=== PATIENT | female | born 1995 | race Caucasian/White ===

== ENCOUNTER 2016-12-01 16:36 | Emergency (ER) | payer MEDICAID | END 2016-12-01 17:12 | disposition left against medical advice (07) | LOC: ER 16:36 | DX: Z53.21 Procedure and treatment not carried out due to patient leaving prior to being seen by health care provider (principal) ==

== ENCOUNTER 2017-08-30 12:06 | Emergency (ER) | payer MEDICAID ==
--- NOTE | 2017-08-30 13:07 | ER Document Report ---
ED Medical Screen (RME) - General Chief Complaint: Vag Bleeding, +preg <12wks Stated Complaint: VAGINAL BLEEDING Time Seen by Provider: 08/30/17 13:01 Mode of Arrival: Ambulatory Information source: Patient TRAVEL OUTSIDE OF THE [place] IN LAST 30 DAYS: No - HPI Patient complains to provider of: vaginal bleeding, Onset: Yesterday Notes: 08/30/17 13:06 Patient is a 22-year-old female who is with 3 recent positive home tests, presenting to the emergency room today complaining of vaginal spotting, last menstrual period was July 25 which would put her around 5 weeks - Related Data Allergies/Adverse Reactions: codeine [Codeine] Allergy (Verified 08/30/17 12:45) aspirin Adverse Reaction (Verified 08/30/17 12:45) Past Medical History - Social History Family history: None Renal/ Medical History: Denies: Hx Peritoneal Dialysis Psychiatric Medical History: Reports: Hx Bipolar Disorder - Immunizations Immunizations up to date: Yes Hx Diphtheria, Pertussis, Tetanus Vaccination: Yes Physical Exam - Vital signs Vitals: Temp Pulse Resp BP Pulse Ox 98.5 F 116 H 18 112/69 98 08/30/17 12:42 08/30/17 12:42 08/30/17 12:42 08/30/17 12:42 08/30/17 12:42 Course - Vital Signs Vital signs: Temp Pulse Resp BP Pulse Ox 98.5 F 116 H 18 112/69 98 08/30/17 12:42 08/30/17 12:42 08/30/17 12:42 08/30/17 12:42 08/30/17 12:42
[2017-08-30 13:46] LABS: ABSOLUTE EOSINOPHILS # (AUTO) 0.3 10^3/uL (0.0-0.6); ABSOLUTE LYMPHOCYTES (AUTO) 2.1 10^3/uL (0.5-4.7); ABSOLUTE MONOCYTES (AUTO) 0.6 10^3/uL (0.1-1.4); ABSOLUTE NEUT (AUTO) 7.2 10^3/uL (1.7-8.2); BASOPHILS % (AUTO) 0.5 % (0-2); EOSINOPHILS % (AUTO) 2.6 % (0-6); HEMATOCRIT 39.8 % (36.0-47.0); HEMOGLOBIN 14.1 g/dL (12.0-15.5); HGB HCT DIFFERENCE 2.5; LYMPHOCYTES % (AUTO) 20.3 % (13-45); MEAN CORPUSCULAR HEMOGLOBIN 30.6 pg (27.0-33.4); MEAN CORPUSCULAR HGB CONC 35.4 g/dL (32.0-36.0); MEAN CORPUSCULAR VOLUME 87 fl (80-97); MONOCYTES % (AUTO) 5.8 % (3-13); RED CELL DISTRIBUTION WIDTH 13.1 % (11.5-14.0); SEGMENTED NEUTROPHILS % (AUTO) 70.8 % (42-78); WHITE BLOOD COUNT 10.2 10^3/uL (4.0-10.5)
[2017-08-30 14:08] LABS: ALANINE AMINOTRANSFERASE 34 U/L (9-52); ALBUMIN 4.5 g/dL (3.5-5.0); ALKALINE PHOSPHATASE 60 U/L (38-126); ANION GAP 10 (5-19); ASPARTATE AMINO TRANSFERASE 19 U/L (14-36); BILIRUBIN,DIRECT 0.4 mg/dL (0.0-0.4); BILIRUBIN,TOTAL 0.7 mg/dL (0.2-1.3); BLOOD UREA NITROGEN 10 mg/dL (7-20); CALCIUM 10.1 mg/dL (8.4-10.2); CARBON DIOXIDE 24 mmol/L (22-30); CHLORIDE 106 mmol/L (98-107); CREATININE RESULT 0.74 mg/dL (0.52-1.25); GLUCOSE 75 mg/dL (75-110); LIPASE 101.7 U/L (23-300); SODIUM 139.8 mmol/L (137-145); TOTAL PROTEIN 7.2 g/dL (6.3-8.2)
--- NOTE | 2017-08-30 14:27 | ER Document Report ---
ED General - General Chief Complaint: Vag Bleeding, +preg <12wks Stated Complaint: VAGINAL BLEEDING Time Seen by Provider: 08/30/17 13:01 Mode of Arrival: Ambulatory TRAVEL OUTSIDE OF THE [place] IN LAST 30 DAYS: No - HPI Notes: Patient is a 22-year-old female who presents the ED complaining of spotting 1 day. Patient states that she took 3 home tests yesterday and all were positive. Patient states her last menstrual period was July 25. Patient states that on occasion she will feel a little bit of mild cramping, but currently is asymptomatic. Patient states that she has not set herself up with an EMISSIONS REPAIR TECHNICIAN yet and she just found out about her yesterday. She still eating and drinking without any difficulties. No other concerns or complaints at this time. Denies any other significant past medical history. Patient is a smoker, but denies any other illicit drug use. Denies any headache, fever, neck pain, URI, sore throat, chest pain, palpitations, syncope, cough, shortness of breath, wheeze, dyspnea, nausea/vomiting/diarrhea, urinary retention, dysuria, hematuria, vaginal odor/discharge, or rash. - Related Data Allergies/Adverse Reactions: codeine [Codeine] Allergy (Verified 08/30/17 12:45) aspirin Adverse Reaction (Verified 08/30/17 12:45) Past Medical History - General Information source: Patient - Social History Smoking Status: Current Every Day Smoker Chew tobacco use (# tins/day): No Frequency of alcohol use: None Drug Abuse: None Family History: Reviewed & Not Pertinent Patient has suicidal ideation: No Patient has homicidal ideation: No Renal/ Medical History: Denies: Hx Peritoneal Dialysis Psychiatric Medical History: Reports: Hx Bipolar Disorder - Immunizations Immunizations up to date: Yes Hx Diphtheria, Pertussis, Tetanus Vaccination: Yes Review of Systems - Review of Systems Notes: REVIEW OF SYSTEMS: CONSTITUTIONAL : Denies fever, chills, or sweats. Denies recent illness. EENT: Denies eye, ear, throat, or mouth pain or symptoms. Denies nasal or sinus congestion or discharge. Denies throat, tongue, or mouth swelling or difficulty swallowing. CARDIOVASCULAR: Denies chest pain. Denies palpitations or racing or irregular heart beat. Denies ankle edema. RESPIRATORY: Denies cough, cold, or chest congestion. Denies shortness of breath, difficulty breathing, or wheezing. GASTROINTESTINAL: see hpi. Denies nausea, vomiting, or diarrhea. Denies blood in vomitus, stools, or per rectum. Denies black, tarry stools. Denies constipation. GENITOURINARY: Denies difficulty urinating, painful urination, burning, frequency, blood in urine, or discharge. FEMALE GENITOURINARY: see hpi. MUSCULOSKELETAL: Denies back or neck pain or stiffness. Denies joint pain or swelling. SKIN: Denies rash, lesions or sores. NEUROLOGICAL: Denies confusion or altered mental status. Denies passing out or loss of consciousness. Denies dizziness or lightheadedness. Denies headache. Denies weakness or paralysis or loss of use of either side. Denies problems with gait or speech. Denies sensory loss, numbness, or tingling. ALL OTHER SYSTEMS REVIEWED AND NEGATIVE. Dictation was performed using [employer] voice recognition software Physical Exam - Vital signs Vitals: Temp Pulse Resp BP Pulse Ox 98.5 F 116 H 18 112/69 98 08/30/17 12:42 08/30/17 12:42 08/30/17 12:42 08/30/17 12:42 08/30/17 12:42 Notes: PHYSICAL EXAMINATION: GENERAL: Well-appearing, well-nourished and in no acute distress. A&Ox4 EYES: Pupils equal round and reactive to light, extraocular movements intact, sclera anicteric, conjunctiva are normal. NECK: Normal range of motion, supple without lymphadenopathy LUNGS: Breath sounds clear to auscultation bilaterally and equal. No wheezes rales or rhonchi. HEART: Regular rate and rhythm without murmurs, rubs, gallops. ABDOMEN: Soft, nontender, nondistended abdomen. No guarding, no rebound. No masses appreciated. Normal bowel sounds present. No CVA tenderness bilaterally. : deferred. Musculoskeletal: LE's b/l: FROM to passive/active. Strength 5+/5. Extremities: No cyanosis, clubbing, or edema b/l. Peripheral pulses 2+. Capillary refill less than 3 seconds. NEUROLOGICAL: Normal speech, normal gait. Normal sensory, motor exams PSYCH: Normal mood, normal affect. SKIN: Warm, Dry, normal turgor, no rashes or lesions noted. Course - Re-evaluation Re-evalutation: 08/30/17 16:35 Patient is an afebrile, well-hydrated, 22-year-old female who was recently found to be with a beta-hCG of 112. Vitals are stable. PE otherwise unremarkable. No abnormalities were seen on ultrasound nor was there any gestational sac. There is no adnexal mass patient is otherwise clinically stable. Rh+ so no rhogam is warranted at this time. Reviewed case with Dr. Romano. Pt needs a f/u for repeat testing in 48hrs with their office. Dr. Romano states that she will have her office contact the patient. Reiterated to the patient that if they do not hear anything by tomorrow that they need to call her office to schedule an appointment for 48 hours from now. Reviewed with patient that an ectopic cannot be r/o, nor can a miscarriage. Low suspicion/risk for acute appendicitis, bowel obstruction, acute cholecystitis, acute cholangitis, perforated diverticulitis, incarcerated hernia , pancreatitis, perforated ulcer, peritonitis, sepsis, pelvic inflammatory disease, tubo-ovarian abscess, ovarian torsion, or other systemic emergent condition at this time. Patient is aware that her condition can change from initial presentation and she needs to monitor symptoms closely and seek medical attention if any acute changes. Conservative measures otherwise for symptoms. Recheck with OBGYN in 2 days. Recheck with your PCM in 2-3 days. Schedule f/u' s with the health department as well. Return to the ED with any worsening/ concerning symptoms otherwise as reviewed in discharge. Patient is in agreement. - Vital Signs Vital signs: Temp Pulse Resp BP Pulse Ox 98.5 F 116 H 18 112/69 98 08/30/17 12:42 08/30/17 12:42 08/30/17 12:42 08/30/17 12:42 08/30/17 12:42 - Laboratory Result Diagrams: 08/30/17 13:30 08/30/17 13:30 Laboratory results interpreted by me: 08/30/17 08/30/17 13:30 13:30 Beta HCG, Quant 112.45 H Urine Blood MODERATE H Urine Urobilinogen 2.0 H Discharge - Discharge Clinical Impression: Positive test Condition: Stable Disposition: HOME, SELF-CARE Instructions: Bleeding During Early ([facility]), Ob-Tectonophysicist Doctors, Follow-Up Care ([facility]) Additional Instructions: Maintain adequate fluid/food intake Monitor for any worsening or acute changes in your symptoms Tylenol as needed Keep f/u with OBGYN (Dr. Romano) on Thursday* Establish with the Health department as well Return to the ED with any worsening symptoms and/or development of fever, headache, chest pain, palpitations, syncope, shortness of breath, trouble breathing, abdominal pain, n/v/d, blood in stool/urine, worsening cramping, worsening vaginal bleeding, or other worsening symptoms that are concerning to you. Forms: Smoking Cessation Education Referrals: SAKSHI ROMANO MD [ACTIVE STAFF] - 09/01/17
[2017-08-30 14:41] LABS: APPEARANCE,URINE SLIGHTLY-CLOUDY; BILIRUBIN,URINE NEGATIVE (NEGATIVE); GLUCOSE, URINE NEGATIVE (NEGATIVE); KETONES,URINE NEGATIVE (NEGATIVE); LEUKOCYTE ESTERASE,URINE NEGATIVE (NEGATIVE); NITRITE,URINE NEGATIVE (NEGATIVE); PROTEIN,URINE NEGATIVE (NEGATIVE); URINE SPECIFIC GRAVITY 1.024
[2017-08-30 14:47] LABS: BACTERIA,URINE TRACE /HPF
--- NOTE | 2017-08-30 16:04 | RADIOLOGY REPORT (SQ) ---
EXAM DESCRIPTION: U/S OB TRANSVAG W/DOPPLER COMPLETED DATE/TIME: 08/30/2017 3:45 pm REASON FOR STUDY: Recent + test, spotting COMPARISON: None. TECHNIQUE: Endovaginal static and realtime grayscale images acquired of the pelvis. Additional selec coy spectral and color Doppler images recorded. All images stored on PACs. BHC LIMITATIONS: None. FINDINGS: UTERUS: No visualized intrauterine . Uterus is 6.3 x 4.7 x 3.6 cm in size. Endometrium is 13 mm in thickness. No intrauterine gestational sac is identified. RIGHT ADNEXA: Normal ovary with normal vascular flow. Right ovary is 3.5 x 2.3 x 2.2 cm in size. Moderate right adnexal free fluid. No adnexal masses. LEFT ADNEXA: Normal ovary with normal vascular flow. Left ovary 2.2 x 2.6 x 1.8 cm in size. No adnexal free fluid. No adnexal masses. FREE FLUID: Moderate free fluid along the right adnexa OTHER: No other significant finding. IMPRESSION: NO VISUALIZED INTRA- OR EXTRAUTERINE . bHCG LEVEL TOO LOW TO EXPECT VISUALIZATION OF . ECTOPIC CANNOT BE EXCLUDED. FOLLOW-UP ULTRASOUND AND SERIAL BHCG LEVELS STRONGLY RECOMMENDED TO ACCURATELY ASSESS STATU S. TECHNICAL DOCUMENTATION: JOB ID: [id number] ([employer])- All Rights Reserved
[2017-08-30 16:48] VITALS: BP 102/61
== END 2017-08-30 16:47 | disposition home or self-care (01) ==
LOC: ER 12:06
DX: Z32.01 Encounter for pregnancy test, result positive (principal); O46.91 Antepartum hemorrhage, unspecified, first trimester; F17.200 Nicotine dependence, unspecified, uncomplicated
CPT/HCPCS: 36415; 76817; 80053; 81001; 83690; 84702; 85025; 86900; 86901; 87086; 93976; 99284

== ENCOUNTER 2019-03-13 14:46 | Emergency (ER) | payer MEDICAID ==
--- NOTE | 2019-03-13 15:40 | ER Document Report ---
HPI - HPI Time Seen by Provider: 03/13/19 15:03 Pain Level: 3 Context: Patient is a 23-year-old female who presents emergency department with a chief complaint of a sore throat. She states that her symptoms started yesterday. She denies any runny nose. She does have history of tonsil stones. She did take some Benadryl to help with her symptoms, but had little relief. She is unsure as whether or not she has allergies. She is a current everyday smoker. - CONSTITUTIONAL Constitutional: DENIES: Fever, Chills - EENT EENT: REPORTS: Sore Throat. DENIES: Ear Pain, Nasal Drainage-Clear, Nasal Drainage-Purulent, Congestion - NEURO Neurology: DENIES: Headache - CARDIOVASCULAR Cardiovascular: DENIES: Chest pain - RESPIRATORY Respiratory: DENIES: Trouble Breathing, Coughing - REPRODUCTIVE Reproductive: DENIES: : - MUSCULOSKELETAL Musculoskeletal: DENIES: Extremity pain - DERM Skin Color: Normal Skin Problems: None Past Medical History - Social History Smoking Status: Current Every Day Smoker Family History: Reviewed & Not Pertinent Patient has suicidal ideation: No Patient has homicidal ideation: No Renal/ Medical History: Denies: Hx Peritoneal Dialysis Psychiatric Medical History: Reports: Hx Bipolar Disorder, Hx Depression - Immunizations Immunizations up to date: Yes Hx Diphtheria, Pertussis, Tetanus Vaccination: Yes Vertical Provider Document - INFECTION CONTROL TRAVEL OUTSIDE OF THE [place] IN LAST 30 DAYS: No - HEENT HEENT: Atraumatic, PERRLA, Pharyngeal Tenderness, Pharyngeal Erythema. negative: Normocephalic, Pharyngeal Exudate, Tympanic Membrane Red, Tympanic Membrane Bulging - NECK Neck: Normal Inspection - RESPIRATORY Respiratory: Breath Sounds Normal, No Respiratory Distress - CARDIOVASCULAR Cardiovascular: Regular Rate, Regular Rhythm Pulses: Normal: Radial - MUSCULOSKELETAL/EXTREMETIES Musculoskeletal/Extremeties: FROM - NEURO Level of Consciousness: Awake, Alert, Appropriate Motor/Sensory: No Motor Deficit, No Sensory Deficit - DERM Integumentary: Warm, Dry Course - Re-evaluation Re-evalutation: Presentation of several days of sore throat in an otherwise well-appearing patient. Rapid strep is negative. History and exam are not consistent with a retropharyngeal abscess or peritonsillar abscess. Airway is patent. No difficulty handling oral secretions. Vitals within normal limits. Patient has been treated with an IM dose of penicillin. She will be treated with Flonase and Zyrtec for seasonal allergies. She does have erythema and edema noted to bilateral nares. At this time will discharge with return precautions and follow- up recommendations. Verbal discharge instructions given a the bedside and opportunity for questions given. Patient is in agreement with this plan and has verbalized understanding of return precautions and the need for primary care follow-up in the next week. Patient's throat culture has been sent for culture. - Vital Signs Vital signs: Temp Pulse Resp BP Pulse Ox 98.3 F 102 H 16 104/67 98 03/13/19 14:53 03/13/19 14:53 03/13/19 14:53 03/13/19 14:53 03/13/19 14:53 Discharge - Discharge Clinical Impression: Sore throat, Seasonal allergies Condition: Stable Disposition: HOME, SELF-CARE Instructions: Sore Throat ([facility]) Additional Instructions: You were seen today in the emergency department for a sore throat. Your strep test was negative. It has been sent for culture. If it is positive, you will be called and have a prescription refilled. Please use warm salt water gargles to help with your sore throat. You can also take ibuprofen 600 mg and acetaminophen 1000 mg every 6 hours as needed for your sore throat. You can drink warm tea with honey to help soothe your throat. Please follow-up with your primary care provider in regards to this visit. Prescriptions: Cetirizine HCl [Zyrtec] 10 mg PO DAILY #30 tab.rapdis Fluticasone Propionate [Flonase Nasal [facility] 50 Mcg/[facility] 16 gm] 2 sprays NASL Q12 #1 inhaler
[2019-03-13 16:47] VITALS: BP 116/74
== END 2019-03-13 16:45 | disposition home or self-care (01) ==
LOC: ER 14:46
DX: J02.9 Acute pharyngitis, unspecified (principal); J30.2 Other seasonal allergic rhinitis; F17.200 Nicotine dependence, unspecified, uncomplicated
CPT/HCPCS: 87070; 87880; 99283

== ENCOUNTER 2020-01-17 17:29 | Emergency (ER) | payer MEDICAID ==
[2020-01-17 20:41] LABS: ABSOLUTE BASOPHILS # (AUTO) 0.1 10^3/uL (0.0-0.2); ABSOLUTE EOSINOPHILS # (AUTO) 0.4 10^3/uL (0.0-0.6); ABSOLUTE LYMPHOCYTES (AUTO) 2.2 10^3/uL (0.5-4.7); ABSOLUTE MONOCYTES (AUTO) 0.8 10^3/uL (0.1-1.4); ABSOLUTE NEUT (AUTO) 13.8 10^3/uL (1.7-8.2); BASOPHILS % (AUTO) 0.5 % (0-2); EOSINOPHILS % (AUTO) 2.3 % (0-6); HEMATOCRIT 42.4 % (36.0-47.0); HEMOGLOBIN 14.4 g/dL (12.0-15.5); LYMPHOCYTES % (AUTO) 12.8 % (13-45); MEAN CORPUSCULAR HEMOGLOBIN 29.8 pg (27.0-33.4); MEAN CORPUSCULAR VOLUME 88 fl (80-97); MONOCYTES % (AUTO) 4.7 % (3-13); PLATELET COUNT 395 10^3/uL (150-450); RED BLOOD COUNT 4.84 10^6/uL (3.72-5.28); RED CELL DISTRIBUTION WIDTH 13.6 % (11.5-14.0); SEGMENTED NEUTROPHILS % (AUTO) 79.7 % (42-78); TOTAL CELLS COUNTED % (AUTO) 100 %; WHITE BLOOD COUNT 17.3 10^3/uL (4.0-10.5)
--- NOTE | 2020-01-17 20:59 | ER Document Report ---
ED GI/ - General Chief Complaint: Vag Bleeding, +preg <12wks Stated Complaint: ABDOMINAL PAIN,NAUSEA Time Seen by Provider: 01/17/20 20:50 Primary Care Provider: [facility] [Provider Group] - Follow up tomorrow Notes: Patient is a 24-year-old female that comes to the emergency department for chief complaint of vaginal bleeding in early . She states she is 12 weeks 4 days, . She states she started having vaginal spotting just prior to arrival. She states she felt a couple cramping pains but this resolved and she denies current abdominal or flank pain. She denies vaginal discharge or dysuria. She denies any other complaints including vomiting or fever. She states she has had an exploratory laparotomy of the abdomen but no abdominal surgeries otherwise, denies medical history otherwise. TRAVEL OUTSIDE OF THE [place] IN LAST 30 DAYS: No - Related Data Allergies/Adverse Reactions: codeine [Codeine] Allergy (Verified 08/30/17 12:45) aspirin Adverse Reaction (Verified 08/30/17 12:45) Past Medical History - General Information source: Patient - Social History Smoking Status: Current Every Day Smoker Chew tobacco use (# tins/day): No Frequency of alcohol use: None Drug Abuse: None Lives with: Family Family History: Reviewed & Not Pertinent Patient has suicidal ideation: No Patient has homicidal ideation: No Renal/ Medical History: Denies: Hx Peritoneal Dialysis Psychiatric Medical History: Reports: Hx Bipolar Disorder, Hx Depression - Immunizations Immunizations up to date: Yes Hx Diphtheria, Pertussis, Tetanus Vaccination: Yes Review of Systems - Review of Systems Constitutional: No symptoms reported EENT: No symptoms reported Cardiovascular: No symptoms reported Respiratory: No symptoms reported Gastrointestinal: No symptoms reported Genitourinary: No symptoms reported Female Genitourinary: See HPI Musculoskeletal: No symptoms reported Skin: No symptoms reported Hematologic/Lymphatic: No symptoms reported Neurological/Psychological: No symptoms reported Physical Exam - Vital signs Vitals: Temp Pulse Resp BP Pulse Ox 98.9 F 117 H 18 116/71 99 01/17/20 19:14 01/17/20 19:14 01/17/20 19:14 01/17/20 19:14 01/17/20 19:14 - Notes Notes: GENERAL: Alert, interacts well. No acute distress. HEAD: Normocephalic, atraumatic. EYES: Pupils equal, round, and reactive to light. Extraocular movements intact. ENT: Oral mucosa moist, tongue midline. Oropharynx unremarkable. Airway patent. LUNGS: Clear to auscultation bilaterally, no wheezes, rales, or rhonchi. No respiratory distress. HEART: Regular rate and rhythm. No murmur ABDOMEN: Soft, non-tender. Non-distended. Bowel sounds present in all 4 quadrants. GENITOURINARY: Deferred EXTREMITIES: Moves all 4 extremities spontaneously. No edema, normal radial and dorsalis pedis pulses bilaterally. No cyanosis. BACK: no cervical, thoracic, lumbar midline tenderness. No saddle anesthesia, normal distal neurovascular exam. NEUROLOGICAL: Alert and oriented x3. Normal speech. Cranial nerves II through XII grossly intact. PSYCH: Patient appears to have been recently crying but otherwise she has a normal mood and interaction SKIN: Warm, dry, normal turgor. No rashes or lesions noted. Course - Re-evaluation Re-evalutation: Patient was not tachycardic on my initial evaluation, she is well-appearing and has no current symptoms. She states that when her vital signs were checked initially she had been tearful and anxious. CBC does show leukocytosis at 17,000, however this is nonspecific given her lack of current symptoms, completely benign abdomen. Urinalysis contaminated and questionable but she has no urinary symptoms, flank pain, fever, culture was placed. ECG is elevated. RhoGam is not indicated with O+ blood type. Ultrasound shows intrauterine measuring at 7 weeks and 6 days but no visualized heartbeat. Based on her expected timeframe I suspect the has stopped developing and patient has an impending miscarriage. I discussed this at length. Patient is not currently bleeding at all, discussed expectations, close follow-up, details, return precautions. Patient will be discharged with her instructions and medication for pain. Patient's is noted to be very supportive. Patient and state appreciation and agreement. Stable at time of discharge. - Vital Signs Vital signs: Temp Pulse Resp BP Pulse Ox 98.7 F 87 20 113/69 99 01/17/20 23:55 01/17/20 23:55 01/17/20 23:55 01/17/20 23:55 01/17/20 23:55 - Laboratory Result Diagrams: 01/17/20 20:16 Laboratory results interpreted by me: 01/17/20 01/17/20 01/17/20 20:16 20:16 20:16 WBC 17.3 H Lymph % (Auto) 12.8 L Absolute Neuts (auto) 13.8 H Seg Neutrophils % 79.7 H Beta HCG, Quant 67559.00 H Urine Protein 30 H Urine Blood LARGE H Ur Leukocyte Esterase MODERATE H Discharge - Discharge Clinical Impression: Vaginal bleeding affecting early Condition: Stable Disposition: HOME, SELF-CARE Additional Instructions: The ultrasound shows a in the uterus at 7 weeks and 6 days but no heartbeat is seen. I suspect this means that the is not developing and I suspect that your body will recognize this and proceed to miscarry. You will likely have a large amount of cramping and bleeding, This can be performed at home, if this is extremely painful, he developed dizziness, passing out, or any other concerning symptoms please return to the emergency department. Please follow closely with GAS PUMPING STATION HELPER, call tomorrow to set up your follow-up appointment, sometimes you need assistance to pass this. You can take the pain medication if needed. See additional instructions below. You have been evaluated for a possible miscarriage. At this time, it appears that the fetus has stopped growing. A miscarriage occurs when the fetus is ab normal. There is no medicine or treatment to prevent it. If bleeding is not severe, and if your pain can be controlled with medicine, you could complete the miscarriage at home. If that's not practical, or if the miscarriage doesn't progress spontaneously, there can be arrangements for a D&C procedure. You should rest in bed. Do not douche or have sex for at least a week, or until OK'd by the doctor. If you believe you've passed the fetus, collect it in a zip-lock plastic bag. Be sure to follow up with your doctor. Call the doctor or return for re- examination if there is an increase in bleeding or cramping, extreme weakness, fainting, fever, or passage of tissue. Prescriptions: Hydrocodone/Acetaminophen [[place] 5-325 mg Tablet] 1 - 2 tab PO ASDIR PRN #12 tablet PRN Reason: Referrals: [facility] [Provider Group] - Follow up tomorrow
[2020-01-17 21:44] LABS: APPEARANCE,URINE CLOUDY; BILIRUBIN,URINE NEGATIVE (NEGATIVE); COLOR,URINE YELLOW; GLUCOSE, URINE NEGATIVE (NEGATIVE); KETONES,URINE NEGATIVE (NEGATIVE); LEUKOCYTE ESTERASE,URINE MODERATE (NEGATIVE); NITRITE,URINE NEGATIVE (NEGATIVE); PROTEIN,URINE 30 mg/dL (NEGATIVE); URINE SPECIFIC GRAVITY 1.024; UROBILINOGEN,URINE NEGATIVE mg/dL (<2.0)
--- NOTE | 2020-01-17 23:02 | RADIOLOGY REPORT (SQ) ---
FIRST TRIMESTER OBSTETRIC ULTRASOUND: 01/17/2020 9:59 PM INTEGRATION TECHNICIAN COMPARISON: None available HISTORY: 24-year old patient with vaginal bleeding and abdominal pain. TECHNIQUE: Multiple waddell scale and color Doppler images of the pelvis were obtained transabdominally and transvaginally. FINDINGS: The uterus measures 7.9 x 5.4 x 7.8 cm. A single gestational sac is seen within the uterus. The sac contains both a yolk sac and an embryo. The crown-rump length measures 1.5 cm corresponding to 7 weeks and 6 day(s). No cardiac motion is detected. No perigestational hemorrhage is seen. The cervix measures 2.7 cm in length. The right and left ovaries are normal in size and sonographic appearance. The right ovary measures 3.5 x 2.4 x 1.8 cm. The left ovary measures 3.4 x 2.2 x 2.8 cm. Arterial waveforms were obtained from both ovaries. No free fluid is seen in the cul-de-sac. IMPRESSION: There is a single intrauterine gestation measuring seven weeks and six days. No heart rate was detected. This may represent a failed intrauterine . Obstetric follow up for routine care should be performed.
[2020-01-17] MEDS ORDERED: HYDROCODONE/ACETAMINOPHEN 5-325 MG (6 TAB/ER DISP) PO PRN (23:12)
[2020-01-17 23:55] VITALS: BP 113/69
== END 2020-01-18 00:20 | disposition home or self-care (01) ==
LOC: ER 17:29
DX: O20.9 Hemorrhage in early pregnancy, unspecified (principal); O99.331 Smoking (tobacco) complicating pregnancy, first trimester; Z3A.12 12 weeks gestation of pregnancy; Z88.6 Allergy status to analgesic agent
CPT/HCPCS: 36415; 76817; 81001; 84702; 85025; 86900; 86901; 87086; 93976; 99284